=== PATIENT | male | born 1975 | race African-American/Black ===

== ENCOUNTER 2022-06-12 23:21 | Emergency (ER) | payer OTHER ==
[2022-06-13 01:12] LABS: #Monocytes 0.5 10x3/uL (0.0-1.1); #Neutrophils 5.7 10x3/uL (1.5-8.4); %Basophils 0.4 % (0.0-2.0); %Eosinophils 0.4 % (0.0-6.0); %Monocytes 7.6 % (0.0-10.0); %Neutrophils 82.2 % (40.0-75.0); Hemoglobin 11.3 g/dL (13.5-17.5); Mean Corpuscular HGB CONC 32.2 g/dL (32.0-36.0); Mean Corpuscular Hemoglobin 25.7 pg (27.0-33.0); Mean Corpuscular Volume 79.8 fl (81.2-95.1); Mean Platelet Volume 8.9 fl (7.4-10.4); Platelet Count 237 10x3/uL (150-450); RBC Distribution Width 14.3 % (11.5-14.5)
[2022-06-13] MEDS ORDERED: Acetaminophen 500 MG TAB ONE (01:21)
[2022-06-13] MEDS ORDERED: Piperacillin/Tazobactam 4.5 GM VIAL ONE (01:22)
[2022-06-13 01:23] LABS: ALT (SGPT) 15 U/L (8-55); AST (SGOT) 18 U/L (5-34); Albumin 3.6 g/dL (3.5-5.0); Alkaline Phosphatase 72 U/L (40-110); Anion Gap 19 mmol/L (10-20); BUN (Urea Nitrogen) 75 mg/dL (8.9-20.6); Bilirubin, Total 0.6 mg/dL (0.2-1.2); Calc. Creatinine Clearance 0 mL/min (70-130); Carbon Dioxide 24 mmol/L (22-29); Chloride 101 mmol/L (98-107); Estimated GFR 19; Globulin 3.8 g/dL (2.4-3.5); Glucose 148 mg/dL (70-105); Potassium 4.5 mmol/L (3.5-5.1); Protein, Total 7.4 g/dL (6.0-8.3); Sodium 139 mmol/L (136-145)
[2022-06-13] MEDS ORDERED: Vancomycin 1 GM VIAL ONE (02:01)
== END 2022-06-13 02:59 | disposition short-term general hospital (02) ==
LOC: CSHERS 23:21 → UNDOADMIN 06-13 03:43 → CSHERHOLD 06-13 03:43
DX: L08.9 Local infection of the skin and subcutaneous tissue, unspecified (principal); E11.9 Type 2 diabetes mellitus without complications; I10 Essential (primary) hypertension; E66.9 Obesity, unspecified; Z87.891 Personal history of nicotine dependence; Z79.82 Long term (current) use of aspirin; Z79.899 Other long term (current) drug therapy; Z79.4 Long term (current) use of insulin
CPT/HCPCS: 36415; 36416; 80053; 83605; 85025; 87040; 87077; 87149; 87186; 96365; 96366; 96367; J2543; J3370